=== PATIENT | female | born 1960 | race Caucasian/White ===

== ENCOUNTER 2023-05-09 16:12 | Inpatient (IN) | payer MEDICAID ==
[~2023-05-09] VITALS: Ht 154.9 cm; Wt 99.3 kg
[~2023-05-09 16:12] MED LIST: ALPR2TAB2 PO; FURO-150 PO; METH40TA14 PO; OXYC20TA55 PO; SOM350 PO
[2023-05-09 16:25] VITALS: BP_SYST 145; PULSE 139; RESP 20; TEMP 103.5; O2SAT 100
[2023-05-09] MEDS ORDERED: ACETAMINOPHEN 500 MG TABLET PO ONE (16:45)
[2023-05-09 17:02] LABS: BASOPHILS # (AUTO) 0.1 K/uL (0.0-0.2); BASOPHILS % (AUTO) 0.6 % (0.0-2.0); EOSINOPHILS # (AUTO) 0.1 K/uL (0.0-0.4); EOSINOPHILS % (AUTO) 0.8 % (0.0-4.0); HEMATOCRIT 35.2 % (36-48); HEMOGLOBIN 11.9 g/dL (12.0-16.0); LYMPHOCYTES # (AUTO) 0.7 K/uL (1.0-5.5); MEAN CORPUSCULAR HEMOGLOBIN 32 pg (27-31); MEAN CORPUSCULAR HGB CONC 34 % (32-36); MEAN CORPUSCULAR VOLUME 94 fL (79.0-98.0); MONOCYTES # (AUTO) 1.1 K/uL (0.0-1.0); MONOCYTES % (AUTO) 7.5 % (1.7-9.3); NEUTROPHILS # (AUTO) 12.3 K/uL (1.8-7.7); NEUTROPHILS % (AUTO) 86.1 % (40.0-70.0); PLATELET COUNT (AUTO) 351 K/uL (130-430); RED BLOOD CELL COUNT(AUTO) 3.77 MIL/uL (4.2-6.2); RED CELL DISTRIBUTION WIDTH 14.3 % (9.0-15.0); WHITE BLOOD COUNT (AUTO) 14.3 K/uL (4.8-10.8)
[2023-05-09 17:18] LABS: PROTHROMBIN TIME 10.1 SECS (9.5-12.5)
[2023-05-09 17:25] LABS: ALANINE AMINOTRANSFERASE 14 U/L (12-78); ALBUMIN 3.1 g/dL (3.4-4.8); ANION GAP 6 (5-15); ASPARTATE AMINOTRANSFERASE 22 U/L (10-37); BILIRUBIN,DIRECT 0.1 mg/dL (0.0-0.3); CALCIUM 8.2 mg/dL (8.4-11.0); CARBON DIOXIDE 29 mmol/L (23-29); CHLORIDE 101 mmol/L (98-107); GFR AFRICAN AMERICAN 65 mL/min (>90); GFR NON AFRICAN-AMERICAN 53 mL/min (>90); GLUCOSE 81 mg/dL (74-106); LIPASE 34 U/L (16-77); POTASSIUM 3.9 mmol/L (3.5-5.1); SODIUM SERUM 136 mmol/L (136-145); TOTAL BILIRUBIN 0.3 mg/dL (0.0-1.0); TOTAL PROTEIN, SERUM 9.6 g/dL (6.4-8.3); UREA NITROGEN, BLOOD 20 mg/dL (8-21)
[2023-05-09] MEDS ORDERED: DIPHENHYDRAMINE INJ 50 MG/ML VIAL IVP ONE (17:30)
[2023-05-09] MEDS ORDERED: NS 250 ML IV ONE (17:30)
[2023-05-09] MEDS ORDERED: AMLO2.5T50 PO (17:45)
[2023-05-09] MEDS ORDERED: MIRT-91 PO (17:45)
[2023-05-09] MEDS ORDERED: CARV3.1246 PO (17:45)
[2023-05-09] MEDS ORDERED: SACU1TAB7 PO (17:45)
[2023-05-09] MEDS ORDERED: ASPI-1393 PO (17:45)
[2023-05-09] MEDS ORDERED: FURO40TA5 PO (17:45)
[2023-05-09 18:05] LABS: INFLUENZA TYPE A Negative (NEGATIVE); INFLUENZA TYPE B NEGATIVE (NEGATIVE)
[2023-05-09 18:07] LABS: COVID19 ANTIGEN SOFIA FIA NEGATIVE (NEGATIVE)
[2023-05-09] MEDS ORDERED: VANCOMYCIN HCL 1000 MG/VIAL IV ONE (18:11)
[2023-05-09] MEDS ORDERED: LORazepam 2 MG/ML VIAL IVP ONE (18:15)
[2023-05-09] MEDS ORDERED: ONDANSETRON HCL 4 MG/2 ML VIAL IVP ONE (18:15)
[2023-05-09] MEDS ORDERED: VANCOMYCIN HCL 1,000 MG in NS 250 ML IV ONE (18:15)
[2023-05-09] MEDS ORDERED: NACL 0.9% 1,000 ML IV ONE (18:15)
[2023-05-09] MEDS ORDERED: IBUPROFEN 800 MG TABLET PO ONE (19:00)
[2023-05-09] MEDS ORDERED: PIPERACILLIN/TAZO 3.375/DEX-IS 50 ML IV SCH (19:15)
[2023-05-09] MEDS ORDERED: NACL 0.9% 1,000 ML IV SCH (19:15)
[2023-05-09 22:54] LABS: BILIRUBIN,URINE NEGATIVE (NEGATIVE); CLARITY/URINE CLEAR (CLEAR); COLOR,URINE YELLOW (YELLOW); GLUCOSE,URINE NEGATIVE (NEGATIVE); KETONES,URINE NEGATIVE (NEGATIVE); LEUKOCYTE ESTERASE ,URINE NEGATIVE (NEGATIVE); NITRITE, URINE NEGATIVE (NEGATIVE); PROTEIN URINE NEGATIVE (NEGATIVE); UROBILINOGEN,URINE 0.2 (0.2-1.0)
[2023-05-09 23:29] LABS: BLOOD, URINE TRACE (NEGATIVE)
[2023-05-09 23:34] LABS: BACTERIA,URINE RARE /HPF (None Seen); RBC,URINE 0-3 /HPF (0-3); WBC,URINE 0-3 /HPF (0-3)
[2023-05-09 23:48] LABS: CANNABINOID, URINE POSITIVE (NEG <=50); METHAMPHETAMINES SCREEN,URINE POSITIVE (NEG <=500); URINE AMPHETAMINE POSITIVE (NEG <=500)
[2023-05-09 23:49] LABS: BENZODIAZEPINE, URINE POSITIVE (NEG <=150); URINE METHADONE POSITIVE (NEG <=200)
[2023-05-09 23:50] LABS: BARBITURATE, URINE NEGATIVE (NEG <=200); COCAINE, URINE NEGATIVE (NEG <=150)
[2023-05-09 23:51] LABS: OPIATE, URINE NEGATIVE (NEG <=100); PHENCYCLIDINE SCREEN,URINE NEGATIVE (NEG <=25); UR TRICYCLIC ANTIDEPRESSANTS NEGATIVE (NEG <=300); URINE OXYCODONE SCREEN NEGATIVE (NEG <=100)
[2023-05-10] MEDS ORDERED: NS 500 ML IV ONE
[2023-05-10] MEDS ORDERED: PIPERACILLIN/TAZOBACTAM 3.375 GM/VIAL (ZOSYN) IV ONE (00:04)
[2023-05-10] MEDS: PIPERACILLIN/TAZO 3.375/DEX-IS 50 ML IV SCH ×5 (00:07→23:38)
[2023-05-10] MEDS ORDERED: FUROSEMIDE 20 MG/2 ML VIAL IVP ONE (02:45)
[2023-05-10 07:25] LABS: BASOPHILS # (AUTO) 0.1 K/uL (0.0-0.2); BASOPHILS % (AUTO) 0.7 % (0.0-2.0); EOSINOPHILS # (AUTO) 0.6 K/uL (0.0-0.4); EOSINOPHILS % (AUTO) 3.1 % (0.0-4.0); HEMATOCRIT 31.3 % (36-48); HEMOGLOBIN 10.6 g/dL (12.0-16.0); LYMPHOCYTES # (AUTO) 0.5 K/uL (1.0-5.5); LYMPHOCYTES % (AUTO) 2.7 % (20.5-51.5); MEAN CORPUSCULAR HEMOGLOBIN 32 pg (27-31); MEAN CORPUSCULAR HGB CONC 34 % (32-36); MEAN CORPUSCULAR VOLUME 95 fL (79.0-98.0); MONOCYTES # (AUTO) 0.6 K/uL (0.0-1.0); MONOCYTES % (AUTO) 3.3 % (1.7-9.3); NEUTROPHILS # (AUTO) 16.6 K/uL (1.8-7.7); NEUTROPHILS % (AUTO) 90.2 % (40.0-70.0); PLATELET COUNT (AUTO) 343 K/uL (130-430); RED BLOOD CELL COUNT(AUTO) 3.28 MIL/uL (4.2-6.2); RED CELL DISTRIBUTION WIDTH 14.4 % (9.0-15.0); WHITE BLOOD COUNT (AUTO) 18.4 K/uL (4.8-10.8)
[2023-05-10 08:00] VITALS: BP_SYST 114; PULSE 134; RESP 20; TEMP 101.2; O2SAT 94
[2023-05-10 08:32] VITALS: BP_SYST 114; PULSE 134; RESP 20; TEMP 101.2; O2SAT 95
[2023-05-10] MEDS ORDERED: ACETAMINOPHEN 325 MG TABLET PO PRN ×3 (09:00→19:00)
[2023-05-10 09:47] LABS: ALBUMIN 2.4 g/dL (3.4-4.8); CALCIUM 8.1 mg/dL (8.4-11.0); CREATININE 1.13 mg/dL (0.55-1.30); POTASSIUM 3.8 mmol/L (3.5-5.1); TOTAL BILIRUBIN 0.4 mg/dL (0.0-1.0); TOTAL PROTEIN, SERUM 7.8 g/dL (6.4-8.3)
[2023-05-10] MEDS: FUROSEMIDE 20 MG TABLET PO SCH ×2 (10:40→20:50)
[2023-05-10] MEDS: carisoprodoL 350 MG TABLET PO SCH ×3 (10:40→20:50)
[2023-05-10] MEDS: ASPIRIN 81 MG TABLET(ECOTRIN) PO SCH (10:41)
[2023-05-10] MEDS: CARVEDILOL 3.125 MG TABLET (COREG) PO SCH ×2 (10:41→20:43)
[2023-05-10] MEDS: NACL 0.9% 1,000 ML IV SCH ×2 (10:51→17:15)
[2023-05-10] MEDS: VANCOMYCIN HCL 1.25 GM/NS 250 ML IV SCH (10:52)
[2023-05-10 12:00] VITALS: BP_SYST 118; PULSE 98; RESP 20; TEMP 99.7; O2SAT 95
[2023-05-10 16:44] VITALS: BP_SYST 90; PULSE 89; RESP 19; TEMP 97.3; O2SAT 98
[2023-05-10 19:00] VITALS: BP_SYST 102; PULSE 94; RESP 12; TEMP 97.6; O2SAT 95
[2023-05-10] MEDS ORDERED: HYDROcodone/ACETAMIN 5-325 MG TAB (NORCO/ VICODIN) PO PRN (19:00)
[2023-05-10] MEDS ORDERED: NALOXONE HCL 0.4 MG/ML AMP (NARCAN) IVP PRN ×2 (19:00)
[2023-05-10] MEDS ORDERED: LORazepam 1 MG TABLET PO PRN (19:00)
[2023-05-10 20:00] VITALS: BP_SYST 102; PULSE 94; RESP 12; TEMP 97.6; O2SAT 95
[2023-05-10] MEDS: MIRTAZAPINE 15 MG TABLET PO SCH (20:50)
[2023-05-10] MEDS: MORPHINE 2 MG/ML INJ. SYRINGE IVP PRN (20:54)
[2023-05-11] MEDS: NACL 0.9% 1,000 ML IV SCH ×2 (03:15→15:18)
[2023-05-11] MEDS: MORPHINE 2 MG/ML INJ. SYRINGE IVP PRN ×4 (05:39→20:29)
[2023-05-11] MEDS: PIPERACILLIN/TAZO 3.375/DEX-IS 50 ML IV SCH ×3 (05:41→17:17)
[2023-05-11 07:51] VITALS: BP_SYST 116; PULSE 101; RESP 18; TEMP 100; O2SAT 96
[2023-05-11 08:00] VITALS: O2SAT 95
[2023-05-11] MEDS: VANCOMYCIN HCL 1.25 GM/NS 250 ML IV SCH (09:32)
[2023-05-11] MEDS: ASPIRIN 81 MG TABLET(ECOTRIN) PO SCH (09:34)
[2023-05-11] MEDS: FUROSEMIDE 20 MG TABLET PO SCH ×2 (09:35→20:27)
[2023-05-11] MEDS: CARVEDILOL 3.125 MG TABLET (COREG) PO SCH ×2 (09:35→20:26)
[2023-05-11] MEDS: carisoprodoL 350 MG TABLET PO SCH ×3 (09:35→20:27)
[2023-05-11 10:04] LABS: BASOPHILS % (AUTO) 0.4 % (0.0-2.0); EOSINOPHILS # (AUTO) 0.1 K/uL (0.0-0.4); EOSINOPHILS % (AUTO) 1.1 % (0.0-4.0); HEMATOCRIT 31.1 % (36-48); HEMOGLOBIN 10.4 g/dL (12.0-16.0); LYMPHOCYTES # (AUTO) 0.9 K/uL (1.0-5.5); LYMPHOCYTES % (AUTO) 7.6 % (20.5-51.5); MEAN CORPUSCULAR HEMOGLOBIN 32 pg (27-31); MEAN CORPUSCULAR HGB CONC 34 % (32-36); MEAN CORPUSCULAR VOLUME 94 fL (79.0-98.0); MONOCYTES # (AUTO) 0.8 K/uL (0.0-1.0); MONOCYTES % (AUTO) 6.7 % (1.7-9.3); NEUTROPHILS # (AUTO) 9.5 K/uL (1.8-7.7); NEUTROPHILS % (AUTO) 84.2 % (40.0-70.0); RED BLOOD CELL COUNT(AUTO) 3.31 MIL/uL (4.2-6.2); RED CELL DISTRIBUTION WIDTH 14.2 % (9.0-15.0)
[2023-05-11 10:12] LABS: WHITE BLOOD COUNT (AUTO) 11.3 K/uL (4.8-10.8)
[2023-05-11 10:26] LABS: ALBUMIN 2.1 g/dL (3.4-4.8); CALCIUM 8.2 mg/dL (8.4-11.0); CREATININE 1.04 mg/dL (0.55-1.30); POTASSIUM 3.4 mmol/L (3.5-5.1); TOTAL BILIRUBIN 0.3 mg/dL (0.0-1.0); TOTAL PROTEIN, SERUM 7.2 g/dL (6.4-8.3)
[2023-05-11 11:25] LABS: PLATELET COUNT (AUTO) 218 K/uL (130-430)
[2023-05-11 17:55] VITALS: BP_SYST 104; PULSE 94; RESP 18; TEMP 98
[2023-05-11 19:00] VITALS: BP_SYST 114; PULSE 98; RESP 16; TEMP 97.8; O2SAT 98
[2023-05-11 20:00] VITALS: BP_SYST 114; PULSE 98; RESP 16; TEMP 97.8; O2SAT 98
[2023-05-11] MEDS: MIRTAZAPINE 15 MG TABLET PO SCH (20:27)
[2023-05-12] VITALS: BP_SYST 112; PULSE 94; RESP 16; TEMP 97.2; O2SAT 98
[2023-05-12] MEDS: PIPERACILLIN/TAZO 3.375/DEX-IS 50 ML IV SCH ×5 (00:56→23:52)
[2023-05-12] MEDS: MORPHINE 2 MG/ML INJ. SYRINGE IVP PRN ×2 (01:13→06:02)
[2023-05-12 05:04] LABS: BASOPHILS % (AUTO) 0.5 % (0.0-2.0); EOSINOPHILS # (AUTO) 0.2 K/uL (0.0-0.4); EOSINOPHILS % (AUTO) 3.4 % (0.0-4.0); HEMOGLOBIN 10.3 g/dL (12.0-16.0); LYMPHOCYTES # (AUTO) 1.1 K/uL (1.0-5.5); LYMPHOCYTES % (AUTO) 15.9 % (20.5-51.5); MEAN CORPUSCULAR HEMOGLOBIN 31 pg (27-31); MEAN CORPUSCULAR HGB CONC 33 % (32-36); MEAN CORPUSCULAR VOLUME 93 fL (79.0-98.0); MONOCYTES # (AUTO) 0.9 K/uL (0.0-1.0); MONOCYTES % (AUTO) 13.2 % (1.7-9.3); NEUTROPHILS # (AUTO) 4.7 K/uL (1.8-7.7); PLATELET COUNT (AUTO) 239 K/uL (130-430); RED BLOOD CELL COUNT(AUTO) 3.33 MIL/uL (4.2-6.2); RED CELL DISTRIBUTION WIDTH 14.3 % (9.0-15.0); WHITE BLOOD COUNT (AUTO) 6.9 K/uL (4.8-10.8)
[2023-05-12 05:39] LABS: ALBUMIN 2.1 g/dL (3.4-4.8); CALCIUM 8.4 mg/dL (8.4-11.0); CREATININE 1.02 mg/dL (0.55-1.30); PHOSPHORUS 2.7 mg/dL (2.7-4.5); POTASSIUM 3.4 mmol/L (3.5-5.1); TOTAL BILIRUBIN 0.2 mg/dL (0.0-1.0); TOTAL PROTEIN, SERUM 7.2 g/dL (6.4-8.3)
[2023-05-12] MEDS: NACL 0.9% 1,000 ML IV SCH ×2 (06:02→21:20)
[2023-05-12 08:00] VITALS: O2SAT 95
[2023-05-12 08:26] VITALS: BP_SYST 113; PULSE 103; RESP 18; TEMP 99.3
[2023-05-12] MEDS ORDERED: METHADONE HCL 10 MG TABLET PO SCH (09:00)
[2023-05-12] MEDS: CARVEDILOL 3.125 MG TABLET (COREG) PO SCH ×2 (09:03→21:11)
[2023-05-12] MEDS: ASPIRIN 81 MG TABLET(ECOTRIN) PO SCH (09:04)
[2023-05-12] MEDS: FUROSEMIDE 20 MG TABLET PO SCH ×2 (09:04→21:09)
[2023-05-12] MEDS: carisoprodoL 350 MG TABLET PO SCH ×3 (09:04→21:09)
[2023-05-12] MEDS: VANCOMYCIN HCL 1.25 GM/NS 250 ML IV SCH (09:05)
[2023-05-12] MEDS ORDERED: METH-797 PO (10:47)
[2023-05-12] MEDS ORDERED: METHADONE HCL 10 MG TABLET PO ONE (11:00)
[2023-05-12] MEDS: CLINDAMYCIN 600 MG in D5W 50 ML IV SCH ×2 (12:09→17:03)
[2023-05-12 17:05] VITALS: BP_SYST 117; PULSE 97; RESP 18; TEMP 98.6; O2SAT 95
[2023-05-12 20:30] VITALS: BP_SYST 114; PULSE 93; RESP 20; TEMP 98.2; O2SAT 95; O2SAT 97
[2023-05-12] MEDS: MIRTAZAPINE 15 MG TABLET PO SCH (21:09)
[2023-05-13 00:30] VITALS: BP_SYST 121; PULSE 95; RESP 20; TEMP 98.4; O2SAT 95
[2023-05-13] MEDS: CLINDAMYCIN 600 MG in D5W 50 ML IV SCH ×2 (01:09→06:31)
[2023-05-13] MEDS: PIPERACILLIN/TAZO 3.375/DEX-IS 50 ML IV SCH (05:30)
[2023-05-13] MEDS: NACL 0.9% 1,000 ML IV SCH (05:39)
[2023-05-13] MEDS ORDERED: LEVOTHYROXINE SODIUM 0.05 MG TABLET PO SCH (07:00)
[2023-05-13 08:00] VITALS: O2SAT 96
[2023-05-13 08:03] VITALS: BP_SYST 114; PULSE 89; RESP 18; TEMP 98.6; O2SAT 96
[2023-05-13 08:09] VITALS: BP_SYST 124; RESP 18; TEMP 98; O2SAT 96
[2023-05-13] MEDS: carisoprodoL 350 MG TABLET PO SCH (08:56)
[2023-05-13] MEDS ORDERED: METHADONE HCL 10 MG TABLET PO SCH (09:00)
[2023-05-13] MEDS: VANCOMYCIN HCL 1.25 GM/NS 250 ML IV SCH (09:01)
[2023-05-13] MEDS: ASPIRIN 81 MG TABLET(ECOTRIN) PO SCH (09:02)
[2023-05-13] MEDS: CARVEDILOL 3.125 MG TABLET (COREG) PO SCH (09:04)
[2023-05-13] MEDS ORDERED: LEVO-62 PO (09:05)
[2023-05-13] MEDS: FUROSEMIDE 20 MG TABLET PO SCH (09:05)
[2023-05-13 10:20] VITALS: BP_SYST 114; PULSE 89; RESP 18; TEMP 98; O2SAT 95
== END 2023-05-13 11:00 | disposition home or self-care (01) | DRG 720 ==
LOC: SED 16:12 → STU 19:14
PROVIDERS: ADMIT Student in an Organized Health Care Education/Training Program; ATTEND Student in an Organized Health Care Education/Training Program
DX: A41.9 Sepsis, unspecified organism (principal); E46 Unspecified protein-calorie malnutrition; I11.0 Hypertensive heart disease with heart failure; I50.9 Heart failure, unspecified; I83.018 Varicose veins of right lower extremity with ulcer other part of lower leg; I83.028 Varicose veins of left lower extremity with ulcer other part of lower leg; L03.116 Cellulitis of left lower limb; L03.115 Cellulitis of right lower limb; D64.9 Anemia, unspecified; B95.4 Other streptococcus as the cause of diseases classified elsewhere; E03.9 Hypothyroidism, unspecified; Z20.822 Contact with and (suspected) exposure to COVID-19; Z79.82 Long term (current) use of aspirin; Z79.899 Other long term (current) drug therapy; Z68.41 Body mass index [BMI] 40.0-44.9, adult; L97.819 Non-pressure chronic ulcer of other part of right lower leg with unspecified severity; L97.829 Non-pressure chronic ulcer of other part of left lower leg with unspecified severity
CPT/HCPCS: 36415; 71045; 80048; 80053; 80076; 80307; 81000; 81001; 81015; 83605; 83690; 83735; 83880; 84100; 84484; 85025; 85610; 85730; 87040; 87086; 87186; 93005; 97530-GP; 99291; G0378; J1940; J2060; J2270; J2405; J2543; J3370; J3490; J7060